=== PATIENT | female | born 1975 | race African-American/Black ===

== ENCOUNTER 2019-03-14 01:21 | Inpatient (IN) | payer OTHER ==
[~2019-03-14] VITALS: Ht 165.1 cm; Wt 103.1 kg
[2019-03-14] VITALS (11 sets, daily range): BP systolic 126–158; BP diastolic 72–85
[~2019-03-14 01:21] MED LIST: CEFDINIR PO; HYDROCODONE-AP1 EAC1 PO; SKELAXIN800 M1 PO; Z FLUOXETINE HCL PO; Z.0.ATIVAN1 MG PO; Z.0.DICYCLOMINE HCL1 PO; Z.0.OMEPRAZOLE20 MG PO; Z.0.PHENERGAN25 M1 PO; [UNRECOGNIZED DRUG - CODE] PO; [UNRECOGNIZED DRUG - OTHER] PO
--- NOTE | 2019-03-14 02:00 | NUR ---
Received patient from [facility], patient is a retired registered nurse, here for abdominal pain. patient is alert and oriented x3. patient is on room air. patient welcomed and offered a bed, assessment done. Dr. Fischer consulted, no call back. Dr. Cerna was also called and made aware of the arrival of patient, patient os currently stable will continue to monitor. Patient condition throughout the night was stable
[2019-03-14] MEDS ORDERED: ACETAMINOP325 MG/10 PO (03:32)
[2019-03-14] MEDS ORDERED: SEROQUEL100 MG PO (03:32)
[2019-03-14] MEDS ORDERED: CYMBALTA60 MG PO (03:32)
[2019-03-14] MEDS ORDERED: BUPROPION HCL100 MG PO (03:32)
[2019-03-14] MEDS ORDERED: ZOFRAN4 MG PO (03:32)
[2019-03-14] MEDS ORDERED: LIDOCAINE HCL50 ML TOP (03:32)
[2019-03-14] MEDS ORDERED: PHENTERMINE HCL15 MG PO (03:32)
[2019-03-14] MEDS ORDERED: OMEPRAZOLE40 MG PO (03:32)
[2019-03-14] MEDS ORDERED: IBUPROFEN400 MG PO (03:32)
[2019-03-14] MEDS ORDERED: ROBAXIN-750750 MG PO (03:32)
[2019-03-14] MEDS ORDERED: OXYCODONE-ACET1 EAC1 PO (03:32)
[2019-03-14] MEDS ORDERED: VICTOZA 2-0.6 MG/0.1 (03:32)
[2019-03-14] MEDS ORDERED: TIZANIDINE HCL4 MG PO (03:32)
[2019-03-14] MEDS ORDERED: LYRICA75 MG PO (03:32)
[2019-03-14] MEDS: MORPHINE SULFATE INJ 4 MG/ML INJ 1ML IV PRN ×3 (03:52→09:13)
[2019-03-14] MEDS: CEFTRIAXONE SOD 1 GM/NS 50 ML 100 ML IV SCH (03:52)
[2019-03-14] MEDS: SODIUM CHLORIDE 0.9% 1000ML 1,000 ML IV SCH ×3 (03:52→21:05)
[2019-03-14] MEDS: ONDANSETRON HCL INJ 2MG/ML 2ML 2 MG/ML VIAL IV PRN ×4 (03:53→21:03)
[2019-03-14] MEDS: METRONIDAZOLE 500MG/NS 100ML 100 ML IV SCH ×4 (04:00→21:04)
[2019-03-14 04:37] LABS: BASOPHILS % 0.6 % (0.0-1.0); EOSINOPHILS # (AUTO) 0.1 (0.0-0.4); EOSINOPHILS % 1.6 % (0.0-6.0); HEMOGLOBIN 8.3 g/dL (12.0-16.0); LYMPHOCYTES # (AUTO) 3.2 (1.0-3.2); LYMPHOCYTES % 49.6 % (18.0-39.1); MEAN CORPUSCULAR HEMOGLOBIN 25.9 pg (28-32); MEAN CORPUSCULAR HGB CONC 29.6 g/dL (31-35); MEAN CORPUSCULAR VOLUME 87.2 fL (81-99); MONOCYTES # (AUTO) 0.4 (0.2-0.8); MONOCYTES % 6.6 % (4.4-11.3); NEUTROPHILS # (AUTO) 2.6 (2.1-6.9); NEUTROPHILS % 41.4 % (38.7-80.0); PLATELET COUNT 337 x10e3/uL (140-360); RED BLOOD COUNT 3.21 x10e6/uL (3.6-5.1); RED CELL DISTRIBUTION WIDTH 16.3 % (11.7-14.4)
[2019-03-14 05:00] LABS: ANION GAP 7.5 mmol/L (8-16); BLOOD UREA NITROGEN 9 mg/dL (7-26); BUN/CREATININE RATIO 10 (6-25); CALCIUM 8.4 mg/dL (8.4-10.2); CARBON DIOXIDE 21 mmol/L (22-29); CHLORIDE 116 mmol/L (98-107); CREATININE, SERUM 0.86 mg/dL (0.57-1.11); EST GLOMERULAR FILTRATION RATE > 60 ML/MIN (60-); GLUCOSE 92 mg/dL (74-118); POTASSIUM 3.5 mmol/L (3.5-5.1); SODIUM 141 mmol/L (136-145)
--- NOTE | 2019-03-14 07:19 | NUR ---
Patient condition throughout the night was stable, patient endorsed to next shift for continuity of care.
[2019-03-14] MEDS ORDERED: PANTOPRAZOLE 40 MG 10ML VIAL IV SCH (09:00)
[2019-03-14] MEDS ORDERED: PROTONIX 200MG/SODIUM CHLORIDE 0.9% 250 ML BAG IV SCH (09:45)
[2019-03-14] MEDS ORDERED: PANTOPRAZOLE 40 MG 10ML VIAL IV NR (10:00)
[2019-03-14] MEDS: PANTOPRAZOL 40MG/SOD CHL 0.9% 50 ML IV SCH ×4 (11:12→23:42)
[2019-03-14] MEDS: HYDROMORPHONE 2MG/ML 2 MG/ML ML IV PRN ×2 (11:12→23:47)
[2019-03-14] MEDS ORDERED: METAXALONE 800 MG TAB PO PRN (11:45)
[2019-03-14 12:14] LABS: THYROID STIMULATING HORMONE 3.138 uIU/mL (0.350-4.940)
[2019-03-14 12:37] LABS: FOLATE 17.9 ng/mL (7.0-15.4)
[2019-03-14] MEDS: IRON SUCROSE 100 MG in SODIUM CHLORIDE 0.9% 100 ML 100 ML IV SCH (12:49)
[2019-03-14] MEDS: DIPHENHYDRAMINE HCL INJ 50 MG/ML VIAL IV PRN ×2 (14:26→21:02)
[2019-03-14] MEDS: QUETIAPINE FUMARATE 25 MG TAB PO SCH ×2 (15:00→20:52)
--- NOTE | 2019-03-14 15:25 | NUR ---
Nutrition Screen Note RD Recommendation for Physician: Initiate PO diet when medically feasible Plan of Care: RD following, monitoring for tolerance and adequacy Nutrition reason for involvement: Nutrition Risk Trigger - MST Primary Diagnose(s): intractable abdominal pain PMH: Maya -en- Y, Ht:64 in Wt:210lb BMI:36.1 kg/m2 IBW:125lb RD Assessment: (03/14/2019) Chart reviewed. Labs and meds reviewed. Initial encounter with patient. Pt states that she is 64" tall and 210 pounds. Pt denies any nausea, is constipated and has abdominal pain. Pt denies any difficulty chewing or swallowing. Pt has Maya - en- Y surgery in 2007. Fair appetite [employer]. No wt changes. Current Diet: NPO Malnutrition Evaluation (03/14/2019) The patient does not meet criteria for a specified degree of malnutrition at this time. Will re-evaluate at follow-up as appropriate. Diet Education Needs Assessment: Nutrition Care Level: Low Signed: Regan Price RD, LD, [facility]
[2019-03-14] MEDS ORDERED: LORAZEPAM 1 MG TAB PO SCH (17:00)
[2019-03-14] MEDS ORDERED: PROPOFOL IV EMULSION 10 MG/ML 50 ML VIAL ONE (18:29)
[2019-03-14] MEDS ORDERED: METOCLOPRAMIDE HCL 10 MG/2ML VIAL ONE (18:29)
[2019-03-14] MEDS ORDERED: LIDOCAINE HCL 2% LOCAL INJ 5 ML SDV VIAL INJ ONE (18:29)
--- NOTE | 2019-03-14 18:37 | History and Physical ---
CHIEF COMPLAINT: Abdominal pain, melena, and acute blood loss anemia. HISTORY OF PRESENT ILLNESS: The patient is a pleasant 43-year-old female, came from outside emergency room in [place], [place]. She came in because of abdominal pain for the past 4-5 days. The patient noted she also has stool that is dark melena. CT scan at an outside [facility] showed moderate enteritis. The patient does have history of gastric bypass back in 2007. Since then, the patient had multiple GI workup and monitoring. The patient is otherwise stable now. She is anemic. Hemoglobin and hematocrit of 8.3 and 28. The patient is pending for further GI workup. Consultation with Dr. Rodney Fischer obtained. PAST MEDICAL HISTORY: Gastric bypass surgery in 2007, anxiety, depression, chronic musculoskeletal pain, chronic low back pain with previous lumbar spine fusion L4-L5 back in 2018, and gastritis. SOCIAL HISTORY: The patient does not smoke or use alcohol. No recreational drugs. ALLERGIES: NO KNOWN ALLERGIES. HOME MEDICATIONS: List is reviewed. REVIEW OF SYSTEMS: Abdominal pain and melena. PHYSICAL EXAMINATION: VITAL SIGNS: Temperature is 98, blood pressure 126/72, pulse rate 76, and respiration 18. GENERAL: The patient is not in acute distress. She is awake. HEENT: Normocephalic and atraumatic. Anicteric. NECK: Supple grossly. PULMONARY: Clear. CARDIOVASCULAR: Regular rate and rhythm. ABDOMEN: Obese. Positive bowel sounds. Non-distention. EXTREMITIES: No cyanosis or edema. NEUROLOGIC: No gross focal deficit. LABORATORY DATA: Sodium is 141, potassium 3.5, chloride 116, bicarb 21, BUN 9, creatinine 0.8, and glucose 92. WBC 6.3, hemoglobin 8.3, hematocrit 28, and platelets is 337. IMPRESSION: 1. Abdominal pain. CT scan show an acute enteritis. 2. Melena with anemia, most likely acute blood loss anemia. 3. History of gastric bypass in 2007 and lumbar spine surgery in 2018. 4. Multiple chronic baseline problems. PLAN: Iron infusion. GI workup including EGD. We will obtain B12 and folic acid level. We will continue to treat this patient. The patient is inpatient. We will start her on Flagyl 5 mg IV q.8, Rocephin 1 g q.24 hours, and Protonix 40 mg IV daily. The patient remained on nothing by mouth for now until further evaluation after endoscopy. MD AUDREY Rene/BUNNY /[id number]
[2019-03-14] MEDS ORDERED: KETAMINE HCL INJ 50 MG/ML 10 ML VIAL ONE (18:38)
[2019-03-14] MEDS ORDERED: FENTANYL CITRATE/PF 100MCG/2 ML INJ ONE (18:38)
--- NOTE | 2019-03-14 19:56 | NUR ---
Left a message for Dr. Fischer's answering service for orders to give meds with sip of water as the patient is NPO. Pending a call back
--- NOTE | 2019-03-14 20:10 | NUR ---
called Dr. Cerna for Tylenol orders and to see if the patient can have PO medications with sips of water. Orders: give 650mg Tylenol PO PRN Q6hrs; patient may have sips of water with PO medications
--- NOTE | 2019-03-14 20:40 | NUR ---
right ac IV removed per patient request. Patient stats that the IV is hurting her.
[2019-03-14] MEDS: HYDROCODONE/APAP 10MG-325MG TAB PO PRN (20:52)
[2019-03-15] VITALS (7 sets, daily range): BP systolic 115–153; BP diastolic 66–78
--- NOTE | 2019-03-15 00:20 | NUR ---
Dr. Fischer called back from previous call for medications with sips of water. I informed him that Dr. Cerna gave orders he was ok with the orders given by Dr. Cerna
--- NOTE | 2019-03-15 00:44 | Operative Report ---
DATE OF PROCEDURE: 03/14/2019 SURGEON: Rodney Fischer MD PROCEDURE: EGD. INDICATIONS FOR EGD: Abdominal pain, history of melena. MEDICATIONS: The patient was done under MAC, please see anesthesiologist's note. PROCEDURE IN DETAIL: With the patient in left lateral decubitus position, the flexible fiberoptic Olympus gastroscope was introduced into the esophagus under direct visualization without any difficulty. The esophagus appeared to be within normal limits. 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 The scope was then advanced with ease into the stomach traversing a small hiatal hernia. The patient apparently is status post Maya-en-Y. No marginal ulcers were noted. The scope was then advanced to the enteric loop, which was patent. The scope was then withdrawn. The patient tolerated the procedure well. IMPRESSION: 1. Normal esophagus. 2. 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 3. Small hiatal hernia. 4. Status post Maya-en-Y. PLAN: Continue current therapy. Keep patient n.p.o. for now. Rodney Fischer MD [facility]/MODL /[id number] cc: Layton Cerna MD
[2019-03-15] MEDS: CEFTRIAXONE SOD 1 GM/NS 50 ML 100 ML IV SCH (02:19)
[2019-03-15] MEDS: HYDROCODONE/APAP 10MG-325MG TAB PO PRN (02:23)
[2019-03-15] MEDS: PANTOPRAZOL 40MG/SOD CHL 0.9% 50 ML IV SCH ×5 (04:40→21:00)
[2019-03-15] MEDS: ACETAMINOPHEN 325 MG TAB PO PRN (04:46)
[2019-03-15 05:25] LABS: BASOPHILS % 0.4 % (0.0-1.0); EOSINOPHILS # (AUTO) 0.1 (0.0-0.4); EOSINOPHILS % 2.1 % (0.0-6.0); HEMOGLOBIN 8.3 g/dL (12.0-16.0); LYMPHOCYTES % 19.6 % (18.0-39.1); MEAN CORPUSCULAR HEMOGLOBIN 26.2 pg (28-32); MEAN CORPUSCULAR HGB CONC 30.7 g/dL (31-35); MEAN CORPUSCULAR VOLUME 85.2 fL (81-99); MONOCYTES # (AUTO) 0.3 (0.2-0.8); MONOCYTES % 5.6 % (4.4-11.3); NEUTROPHILS # (AUTO) 3.8 (2.1-6.9); NEUTROPHILS % 71.9 % (38.7-80.0); PLATELET COUNT 299 x10e3/uL (140-360); RED BLOOD COUNT 3.17 x10e6/uL (3.6-5.1)
[2019-03-15] MEDS: METRONIDAZOLE 500MG/NS 100ML 100 ML IV SCH ×3 (05:49→21:00)
[2019-03-15] MEDS: ONDANSETRON HCL INJ 2MG/ML 2ML 2 MG/ML VIAL IV PRN ×2 (05:49→20:07)
[2019-03-15 05:57] LABS: ANION GAP 10.2 mmol/L (8-16); BLOOD UREA NITROGEN 7 mg/dL (7-26); BUN/CREATININE RATIO 10 (6-25); CALCIUM 8.5 mg/dL (8.4-10.2); CARBON DIOXIDE 22 mmol/L (22-29); CHLORIDE 109 mmol/L (98-107); CREATININE, SERUM 0.72 mg/dL (0.57-1.11); EST GLOMERULAR FILTRATION RATE > 60 ML/MIN (60-); GLUCOSE 84 mg/dL (74-118); POTASSIUM 3.2 mmol/L (3.5-5.1); SODIUM 138 mmol/L (136-145)
[2019-03-15 06:02] LABS: FERRITIN 26.09 ng/mL (4.63-204.00)
[2019-03-15 06:27] LABS: FOLATE 18.3 ng/mL (7.0-15.4)
[2019-03-15] MEDS ORDERED: BUPROPION HCL 100 MG TAB PO SCH (09:00)
[2019-03-15] MEDS ORDERED: PREGABALIN 75 MG CAP PO SCH ×2 (09:00→12:30)
[2019-03-15] MEDS: SODIUM CHLORIDE 0.9% 1000ML 1,000 ML IV SCH ×2 (11:15→18:45)
[2019-03-15 11:22] LABS: BILIRUBIN,URINE NEGATIVE (NEGATIVE); CLARITY,URINE SL CLOUDY (CLEAR); COLOR,URINE YELLOW (YELLOW); KETONES,URINE 1+ (NEGATIVE); LEUKOCYTE ESTERASE ,URINE SMALL (NEGATIVE); NITRITE,URINE NEGATIVE (NEGATIVE); PROTEIN,URINE DIPSTICK NEGATIVE (NEGATIVE); URINE UROBILINOGEN 1 mg/dL (0.2 - 1)
[2019-03-15 11:29] LABS: BACTERIA,URINE FEW /HPF; EPITHELIAL CELLS,URINE MODERATE /LPF; RBC,URINE 0-5 /HPF (0-5)
[2019-03-15] MEDS ORDERED: ZOFRAN4 MG SL (11:42)
[2019-03-15] MEDS ORDERED: OXYCODONE-ACET1 EAC1 PO (11:42)
[2019-03-15] MEDS ORDERED: SAXENDA SQ (11:42)
[2019-03-15] MEDS ORDERED: LIDOPATCH1 EACH TP (11:42)
[2019-03-15] MEDS ORDERED: AIMOVIG SQ (11:42)
[2019-03-15] MEDS ORDERED: Tylenol Arthritis PO (11:42)
[2019-03-15] MEDS ORDERED: GAS-X125 MG PO (11:42)
[2019-03-15] MEDS ORDERED: DICYCLOMINE HCL 10 MG CAP PO PRN (12:00)
[2019-03-15] MEDS ORDERED: LORAZEPAM 1 MG TAB PO PRN (12:15)
[2019-03-15] MEDS ORDERED: SIMETHICONE 80 MG CHEW PO PRN (12:15)
[2019-03-15] MEDS: LIDOCAINE 5% PATCH TP SCH (12:24)
[2019-03-15] MEDS: TIZANIDINE HCL 4 MG TAB PO SCH ×3 (12:24→21:00)
[2019-03-15] MEDS: IRON SUCROSE 100 MG in SODIUM CHLORIDE 0.9% 100 ML 100 ML IV SCH (12:24)
[2019-03-15] MEDS: OXYCODONE/ACETAMINOPHEN 5-325 1 EACH TABLET PO PRN ×2 (12:25→20:06)
[2019-03-15] MEDS: PREGABALIN 50 MG CAP PO SCH ×3 (12:52→20:59)
[2019-03-15] MEDS: DULOXETINE HCL 30 MG DELAYED RELEASE PO SCH (14:01)
[2019-03-15] MEDS: BUPROPION HCL 150 MG TABCR PO SCH (14:01)
[2019-03-15] MEDS ORDERED: GADOBENATE DIMEGLUMINE 1 ML IV ONE (14:03)
[2019-03-15] MEDS: METHOCARBAMOL 750 MG TAB PO SCH ×2 (15:27→20:59)
--- NOTE | 2019-03-15 19:30 | NUR ---
patient called the call light stating that hr IV was hurting. Upon inspection the IV was puffy and red in the left forearm. Patient is noted to have 2 20 gauge IV in the forearm due to IV fluids and a protonix drip. The reddened Iv was removed with catheter intact. New IV 22gauge was stared in the right forearm.
--- NOTE | 2019-03-15 20:47 | NUR ---
patient complained to the tech that she was having pain with her left forearm IV. upon inspection the IV site was red and slightly swollen. Removed the 20IV with catheter intact. Replaced with a 22g IV to the right forearm.
[2019-03-15] MEDS: QUETIAPINE FUMARATE 100 MG TAB PO SCH (21:00)
--- NOTE | 2019-03-15 22:49 | NUR ---
Dr. Fischer called to see how the patient was feeling on clear liquid diet. Patient states she tolerated her diet she feels fine to be advanced to full liquids.
[2019-03-16] VITALS (8 sets, daily range): BP systolic 102–127; BP diastolic 54–73
[2019-03-16] MEDS ORDERED: CYANOCOBALAMIN INJ 1,000 MCG/ML VIAL IM ONE (00:30)
[2019-03-16] MEDS: HYDROMORPHONE 2MG/ML 2 MG/ML ML IV PRN (01:40)
[2019-03-16] MEDS: PANTOPRAZOL 40MG/SOD CHL 0.9% 50 ML IV SCH ×6 (02:00→23:15)
[2019-03-16] MEDS: CEFTRIAXONE SOD 1 GM/NS 50 ML 100 ML IV SCH (02:08)
[2019-03-16] MEDS: SODIUM CHLORIDE 0.9% 1000ML 1,000 ML IV SCH ×2 (04:45→13:32)
[2019-03-16 05:05] LABS: BASOPHILS % 0.3 % (0.0-1.0); EOSINOPHILS # (AUTO) 0.1 (0.0-0.4); EOSINOPHILS % 2.1 % (0.0-6.0); HEMATOCRIT 25.8 % (34.2-44.1); HEMOGLOBIN 7.9 g/dL (12.0-16.0); LYMPHOCYTES # (AUTO) 2.4 (1.0-3.2); LYMPHOCYTES % 40.8 % (18.0-39.1); MEAN CORPUSCULAR HEMOGLOBIN 26.1 pg (28-32); MEAN CORPUSCULAR HGB CONC 30.6 g/dL (31-35); MEAN CORPUSCULAR VOLUME 85.1 fL (81-99); MONOCYTES # (AUTO) 0.6 (0.2-0.8); MONOCYTES % 10.3 % (4.4-11.3); NEUTROPHILS # (AUTO) 2.7 (2.1-6.9); NEUTROPHILS % 45.8 % (38.7-80.0); PLATELET COUNT 319 x10e3/uL (140-360); RED BLOOD COUNT 3.03 x10e6/uL (3.6-5.1)
[2019-03-16] MEDS: METRONIDAZOLE 500MG/NS 100ML 100 ML IV SCH ×3 (05:08→22:07)
[2019-03-16] MEDS: ONDANSETRON HCL INJ 2MG/ML 2ML 2 MG/ML VIAL IV PRN ×3 (05:08→21:07)
[2019-03-16 05:27] LABS: AMYLASE 33 U/L (25-125); LIPASE 13 U/L (8-78)
[2019-03-16 06:07] LABS: ANION GAP 10.9 mmol/L (8-16); BLOOD UREA NITROGEN 5 mg/dL (7-26); BUN/CREATININE RATIO 7 (6-25); CALCIUM 8.3 mg/dL (8.4-10.2); CARBON DIOXIDE 22 mmol/L (22-29); CHLORIDE 109 mmol/L (98-107); CREATININE, SERUM 0.73 mg/dL (0.57-1.11); EST GLOMERULAR FILTRATION RATE > 60 ML/MIN (60-); GLUCOSE 77 mg/dL (74-118); SODIUM 139 mmol/L (136-145)
[2019-03-16 06:17] LABS: POTASSIUM 2.9 mmol/L (3.5-5.1)
--- NOTE | 2019-03-16 06:20 | NUR ---
lab called with a critical potassium 2.9. Called Dr. Cerna left a detailed message per his recording. pending return call for further recommendations
[2019-03-16] MEDS ORDERED: POTASSIUM CHLORIDE 20 MEQ TAB CR PO SCH ×2 (08:15→11:30)
[2019-03-16] MEDS ORDERED: DULOXETINE HCL 30 MG DELAYED RELEASE PO SCH (09:00)
[2019-03-16] MEDS ORDERED: PHENTERMINE HCL 37.5 MG PO SCH (09:00)
[2019-03-16] MEDS: CYANOCOBALAMIN INJ 1,000 MCG/ML VIAL IM SCH (09:03)
[2019-03-16] MEDS: LIDOCAINE 5% PATCH TP SCH (09:03)
[2019-03-16] MEDS: DULOXETINE HCL 30 MG DELAYED RELEASE PO SCH (09:03)
[2019-03-16] MEDS: TIZANIDINE HCL 4 MG TAB PO SCH ×4 (09:03→21:05)
[2019-03-16] MEDS: PREGABALIN 50 MG CAP PO SCH ×3 (09:03→21:04)
[2019-03-16] MEDS: BUPROPION HCL 150 MG TABCR PO SCH (09:03)
[2019-03-16] MEDS: METHOCARBAMOL 750 MG TAB PO SCH ×3 (09:03→21:05)
[2019-03-16] MEDS: OXYCODONE/ACETAMINOPHEN 5-325 1 EACH TABLET PO PRN ×3 (09:05→21:08)
[2019-03-16] MEDS: ACETAMINOPHEN 325 MG TAB PO PRN (13:00)
--- NOTE | 2019-03-16 14:59 | Diagnostic Imaging Report ---
MRI abdomen CPT code: 87775 Indication: Nausea, diffuse abdominal pain ^PERSISTENT PAIN ^[id number] ^[id number] Technique: Axial T1 nonfat sat in and out of phase, axial T2 fat sat, coronal T2 nonfat sat, axial DWI and ADC MR images of the abdomen were obtained before and after the administration of 19 cc of gadolinium. Axial T1 fat sat GRE dynamic images in precontrast, arterial, venous and delayed phases were obtained. Comparison: None Findings: Images are motion degraded. Liver: Normal T1 and T2 signal. No evidence of mass. Gallbladder: Present and is distended. No intraluminal calculi mural thickening, or pericholecystic inflammation Biliary tree: No intrahepatic biliary ductal dilatation. The common bile duct measures 6 mm in diameter and tapers as it approaches the ampulla. No intraluminal filling defect. Pancreas: Normal T1 signal. Normal enhancement of the parenchyma. No mass or ductal dilatation. Spleen: Normal in attenuation and size without mass Adrenal glands: No evidence for mass. Kidneys: No hydronephrosis. There is a lobulated cyst in the left kidney measuring 6 mm. No enhancing masses in either kidney. Lymph nodes: No enlarged abdominal or retroperitoneal lymph nodes. Bowel: Stomach and visualized portions of the small bowel and large bowel are normal in diameter with normal wall thickness. Vasculature: Patent and normal in morphology. Peritoneum/retroperitoneum: No free fluid or fluid collection. Pelvis: Visualized pelvic organs are unremarkable. Lung bases: Clear. Bones: Postoperative changes of the lower lumbar spine from fusion. No focal osseous lesions. IMPRESSION: 1. Hydropic gallbladder. Recommend evaluation of gallbladder function with HIDA scan in nuclear medicine. No biliary ductal dilatation. 2. Other findings as described above. Signed by: Dr. Brett Jain MD on 03/16/2019 2:56 PM
[2019-03-16] MEDS ORDERED: POTASSIUM CHLORIDE 20 MEQ TAB CR PO ONE ×2 (15:00→17:15)
--- NOTE | 2019-03-16 17:08 | NUR ---
20meq potassium wasted due to patient dropping tablet on floor.
--- NOTE | 2019-03-16 17:42 | NUR ---
spoke to in regards to new consult, MD states will be in to see patient in "the morning."
[2019-03-16] MEDS: QUETIAPINE FUMARATE 100 MG TAB PO SCH (21:05)
[2019-03-17] VITALS (7 sets, daily range): BP systolic 113–143; BP diastolic 58–84
[2019-03-17] MEDS: SODIUM CHLORIDE 0.9% 1000ML 1,000 ML IV SCH ×2 (00:45→02:17)
[2019-03-17] MEDS: CEFTRIAXONE SOD 1 GM/NS 50 ML 100 ML IV SCH (02:29)
[2019-03-17] MEDS: ONDANSETRON HCL INJ 2MG/ML 2ML 2 MG/ML VIAL IV PRN ×4 (04:30→19:30)
[2019-03-17] MEDS: HYDROMORPHONE 2MG/ML 2 MG/ML ML IV PRN ×4 (04:30→19:29)
[2019-03-17 04:56] LABS: BASOPHILS % 0.5 % (0.0-1.0); EOSINOPHILS # (AUTO) 0.2 (0.0-0.4); EOSINOPHILS % 3.1 % (0.0-6.0); HEMATOCRIT 28.3 % (34.2-44.1); HEMOGLOBIN 8.5 g/dL (12.0-16.0); LYMPHOCYTES # (AUTO) 2.3 (1.0-3.2); LYMPHOCYTES % 37.7 % (18.0-39.1); MEAN CORPUSCULAR HEMOGLOBIN 26.2 pg (28-32); MEAN CORPUSCULAR VOLUME 87.1 fL (81-99); MONOCYTES # (AUTO) 0.7 (0.2-0.8); MONOCYTES % 11.6 % (4.4-11.3); NEUTROPHILS # (AUTO) 2.8 (2.1-6.9); NEUTROPHILS % 46.4 % (38.7-80.0); PLATELET COUNT 324 x10e3/uL (140-360); RED BLOOD COUNT 3.25 x10e6/uL (3.6-5.1); RED CELL DISTRIBUTION WIDTH 16.2 % (11.7-14.4)
[2019-03-17 05:18] LABS: ANION GAP 8.4 mmol/L (8-16); BLOOD UREA NITROGEN 5 mg/dL (7-26); BUN/CREATININE RATIO 6 (6-25); CALCIUM 8.6 mg/dL (8.4-10.2); CARBON DIOXIDE 24 mmol/L (22-29); CHLORIDE 111 mmol/L (98-107); CREATININE, SERUM 0.78 mg/dL (0.57-1.11); EST GLOMERULAR FILTRATION RATE > 60 ML/MIN (60-); GLUCOSE 81 mg/dL (74-118); POTASSIUM 3.4 mmol/L (3.5-5.1); SODIUM 140 mmol/L (136-145)
--- NOTE | 2019-03-17 05:24 | NUR ---
patient IV in the right and left forearm 22g were burning and hurting the patient. There was a small swollen spot about the insertion site. The catheters were both removed intact. Two 22g IV's were started in the left forearm. The patient requires 2 IV's as she is on a protonix drip and IV fluids with intermittent IV antibiotic as ordered.
[2019-03-17] MEDS: METRONIDAZOLE 500MG/NS 100ML 100 ML IV SCH ×3 (05:37→21:17)
[2019-03-17 05:46] LABS: PHOSPHORUS 2.2 MG/DL (2.3-4.7)
--- NOTE | 2019-03-17 07:08 | NUR ---
Walking rounds done and report received. Patient is awake and alertx3 in NAD. POC discussed. Awaiting Dr. Nunez for further orders. Patient instructed to call for assistance as needed and verbalized understanding. Call austin within reach.
--- NOTE | 2019-03-17 07:19 | NUR ---
patient is alert and oriented, IV's intact. report given to tomasa KAHN
[2019-03-17] MEDS: METHOCARBAMOL 750 MG TAB PO SCH ×3 (09:07→21:17)
[2019-03-17] MEDS: OXYCODONE/ACETAMINOPHEN 5-325 1 EACH TABLET PO PRN ×2 (09:07→17:39)
[2019-03-17] MEDS: PREGABALIN 50 MG CAP PO SCH ×3 (09:07→21:17)
[2019-03-17] MEDS: BUPROPION HCL 150 MG TABCR PO SCH (09:07)
[2019-03-17] MEDS: DULOXETINE HCL 30 MG DELAYED RELEASE PO SCH (09:07)
[2019-03-17] MEDS: CYANOCOBALAMIN INJ 1,000 MCG/ML VIAL IM SCH (09:07)
[2019-03-17] MEDS: LIDOCAINE 5% PATCH TP SCH (09:07)
[2019-03-17] MEDS: TIZANIDINE HCL 4 MG TAB PO SCH ×4 (09:07→21:17)
[2019-03-17] MEDS: PANTOPRAZOL 40MG/SOD CHL 0.9% 50 ML IV SCH (10:26)
[2019-03-17] MEDS ORDERED: POTASSIUM CHLORIDE 10MEQ EA PO SCH (11:00)
[2019-03-17] MEDS ORDERED: POTASSIUM PHOSPHATE 20 MM in SODIUM CHLORIDE 0.9% 250ML 250 ML IV ONE (11:15)
--- NOTE | 2019-03-17 11:51 | NUR ---
CM SPOKE TO FEMI JOSUE REGARDING PATIENT PLAN OF CARE: PATIENT TO HAVE HIDA SCAN; DR. DAVILA TO ROUND ASSESS PATIENT AND HIDA SCAN RESULTS FOR POSSIBLE SURGERY TO REMOVE GALLBLADDER.
--- NOTE | 2019-03-17 13:10 | Consultation ---
DATE OF CONSULTATION: 03/17/2019 HISTORY OF PRESENT ILLNESS: The patient is a 43-year-old female admitted through the emergency room with complaints of gastrointestinal bleeding as well as epigastric abdominal pain. The patient says she has had pain for about one week now. She had upper GI endoscopy, which revealed Tracey-Martin tears and she is no longer bleeding. Pain has persisted, however. She does not have any back pain. She does have some associated nausea. Evaluation of the MRI revealed a distended gallbladder suggestive of hydrops of the gallbladder. PAST MEDICAL HISTORY: Significant for previous gastric bypass surgery in 2008, previous lumbar spine fusion in 2018. She has a history of fibromyalgia and chronic pain. MEDICATIONS: Listed in the chart. ALLERGIES: SHE HAS NO KNOWN ALLERGIES. FAMILY HISTORY: Noncontributory. SOCIAL HISTORY: The patient does not smoke cigarettes or drink alcohol. REVIEW OF SYSTEMS: As stated above, otherwise was negative. PHYSICAL EXAMINATION: GENERAL: The patient is awake and alert. VITAL SIGNS: Normal. HEENT: Sclera is nonicteric. NECK: Supple with no masses. LUNGS: Equal breath sounds are clear bilaterally. CARDIAC: Regular rate and rhythm with no murmur. ABDOMEN: Soft. There is mild epigastric tenderness. There is no mass. There were no signs of peritonitis. EXTREMITIES: Have no edema. NEUROLOGIC: Grossly intact. LAB TESTS: White blood cell count is normal, hemoglobin 8.5, hematocrit 28.3. Chemistries essentially normal. CT scan of the abdomen and pelvis done at the outside facility revealed some thickening of the bowel suggestive of enteritis. MRI revealed distended gallbladder. ASSESSMENT: A 43-year-old female with epigastric abdominal pain and distended gallbladder seen on MRI. Plan to evaluate further with a HIDA scan with ejection fraction. It is very likely her pain may be due to cholecystitis. There are no signs of peritonitis, however, no findings that would warrant immediate surgical intervention. Thank you for asking me to see Ms. Akers. MD DEQUAN Lyn/BUNNY /[id number]
--- NOTE | 2019-03-17 15:30 | NUR ---
Patient is off unit for Hida scan
--- NOTE | 2019-03-17 17:26 | NUR ---
Patient returned from Hida scan
--- NOTE | 2019-03-17 18:43 | Diagnostic Imaging Report ---
Hepatobiliary Scan with Gallbladder Ejection Fraction Clinical information: Abdominal pain x 1.5 weeks Report: Following intravenous administration of 6.8 millicuries of Tc-99m mebrofenin, dynamic images of the abdomen in the anterior projection were obtained through 30 minutes. Sincalide (CCK analog) 2.0 micrograms was administered intravenously over 30 minutes with additional imaging for determination of gallbladder ejection fraction. Perfusion to the liver is normal. Extraction of tracer from the blood pool by the liver parenchyma is normal. Tracer is seen promptly within the biliary tract. The gallbladder begins to fill by 8 minutes post-injection of tracer and fills adequately. Tracer is seen in the small bowel by 18 minutes. The gallbladder ejection fraction with administration of sincalide is 98% (normal greater than 40%). Impression: 1. Filling of the gallbladder excludes the diagnosis of acute cystic duct obstruction/acute cholecystitis. 2. Normal gallbladder ejection fraction of 98% does not support the clinical diagnosis of chronic cholecystitis/gallbladder dyskinesia. Signed by: Dr. Sis Cassidy M.D. on 03/17/2019 6:40 PM
--- NOTE | 2019-03-17 20:06 | NUR ---
Dr. Nunez was called and stated no npo or planned surgery.
[2019-03-17] MEDS: QUETIAPINE FUMARATE 100 MG TAB PO SCH (21:17)
[2019-03-18] VITALS: BP 122/73
[2019-03-18] MEDS: CEFTRIAXONE SOD 1 GM/NS 50 ML 100 ML IV SCH (03:53)
[2019-03-18 04:00] VITALS: BP_SYST 137; BP_SYST 142; BP_DIAS 64; BP_DIAS 79
[2019-03-18] MEDS: HYDROMORPHONE 2MG/ML 2 MG/ML ML IV PRN ×4 (04:23→17:40)
[2019-03-18] MEDS: ONDANSETRON HCL INJ 2MG/ML 2ML 2 MG/ML VIAL IV PRN ×2 (04:23→09:57)
[2019-03-18 05:07] LABS: BASOPHILS # (AUTO) 0.1 (0.0-0.1); BASOPHILS % 0.7 % (0.0-1.0); EOSINOPHILS # (AUTO) 0.3 (0.0-0.4); EOSINOPHILS % 3.8 % (0.0-6.0); HEMATOCRIT 31.1 % (34.2-44.1); LYMPHOCYTES # (AUTO) 3.1 (1.0-3.2); LYMPHOCYTES % 44.7 % (18.0-39.1); MEAN CORPUSCULAR HEMOGLOBIN 25.6 pg (28-32); MEAN CORPUSCULAR HGB CONC 28.9 g/dL (31-35); MEAN CORPUSCULAR VOLUME 88.6 fL (81-99); MONOCYTES # (AUTO) 0.5 (0.2-0.8); MONOCYTES % 7.5 % (4.4-11.3); NEUTROPHILS % 42.9 % (38.7-80.0); PLATELET COUNT 332 x10e3/uL (140-360); RED BLOOD COUNT 3.51 x10e6/uL (3.6-5.1); RED CELL DISTRIBUTION WIDTH 17.1 % (11.7-14.4)
[2019-03-18 05:27] LABS: ANION GAP 9.8 mmol/L (8-16); BLOOD UREA NITROGEN 5 mg/dL (7-26); BUN/CREATININE RATIO 6 (6-25); CARBON DIOXIDE 25 mmol/L (22-29); CHLORIDE 106 mmol/L (98-107); CREATININE, SERUM 0.78 mg/dL (0.57-1.11); EST GLOMERULAR FILTRATION RATE > 60 ML/MIN (60-); GLUCOSE 96 mg/dL (74-118); POTASSIUM 3.8 mmol/L (3.5-5.1); SODIUM 137 mmol/L (136-145)
[2019-03-18] MEDS: METRONIDAZOLE 500MG/NS 100ML 100 ML IV SCH ×2 (05:36→13:29)
[2019-03-18] MEDS: DIPHENHYDRAMINE HCL INJ 50 MG/ML VIAL IV PRN ×2 (06:17→18:44)
--- NOTE | 2019-03-18 06:45 | NUR ---
Patient endorsed to next shift for continuity of care
--- NOTE | 2019-03-18 07:00 | NUR ---
received am report from rn. pt is awake in bed, no s/s of distress. call light within reach, bed in lowest position, side rails up.
[2019-03-18] MEDS ORDERED: PANTOPRAZOLE SOD 40 MG TABEC PO SCH (07:30)
[2019-03-18 07:55] VITALS: BP 170/84
[2019-03-18] MEDS: DULOXETINE HCL 30 MG DELAYED RELEASE PO SCH (08:53)
[2019-03-18] MEDS: PREGABALIN 50 MG CAP PO SCH ×2 (08:53→15:02)
[2019-03-18] MEDS: METHOCARBAMOL 750 MG TAB PO SCH ×2 (08:54→15:02)
[2019-03-18] MEDS: BUPROPION HCL 150 MG TABCR PO SCH (08:54)
[2019-03-18] MEDS: TIZANIDINE HCL 4 MG TAB PO SCH ×3 (08:54→17:20)
[2019-03-18 08:55] VITALS: BP 170/84
[2019-03-18] MEDS: IRON-VITAMIN-MINERAL CAPSULE PO SCH ×2 (08:55→17:19)
[2019-03-18] MEDS: CYANOCOBALAMIN INJ 1,000 MCG/ML VIAL IM SCH (08:56)
[2019-03-18] MEDS: LIDOCAINE 5% PATCH TP SCH (10:01)
[2019-03-18 11:52] VITALS: BP 117/56
[2019-03-18] MEDS: ONDANSETRON HCL 4 MG ORAL DISINTEGRATING TAB PO PRN ×2 (13:29→17:40)
[2019-03-18] MEDS: OXYCODONE/ACETAMINOPHEN 5-325 1 EACH TABLET PO PRN (15:05)
[2019-03-18 15:41] VITALS: BP 125/67
--- NOTE | 2019-03-19 07:25 | Discharge Summary ---
FINAL DISCHARGE DIAGNOSES: 1. Intractable nausea, vomiting, and abdominal pain, status post EGD that showed Tracey-Martin tears. 2. Anemia with history of melena. 3. Chronic back pain. 4. Hydrops gallbladder with normal HIDA scan. CONSULTANTS: General Surgery and GI. PHYSICAL EXAMINATION: VITAL SIGNS: Temperature 97.4, pulse 69, respiratory rate is 18, blood pressure 125/67, and pulse ox 98% on room air. LABORATORY DATA: Lab findings show white count is 6.9, hemoglobin 9, hematocrit 31, platelets of 332. Chemistry; sodium 137, potassium 3.8, chloride 106, bicarb 25, anion gap of 9.8, BUN 5, creatinine is 0.78, calcium is 9, magnesium 2, and phosphorus none. Iron saturation was . TSH is 3.1. Urinalysis was found to be negative. MICROBIOLOGY: None. IMAGING STUDIES: MRI of the abdomen showed hydrops gallbladder, recommend evaluation with a HIDA scan. No biliary ductal dilatation. HIDA scan performed on 03/17/2019, shows finding of filling of the gallbladder, excludes the diagnosis of acute cystic duct obstruction of acute cholecystitis. Normal gallbladder ejection fraction 98% does not support the clinical diagnosis of a chronic cholecystitis or gallbladder dyskinesia. HOSPITAL COURSE: This is a 43-year-old female with chronic back pain, comes into the ED with complaints of abdominal pain. Imaging study, CT was consistent with acute enteritis. She also has a history of melena with underlying anemia with a history of acute blood loss anemia. GI was consulted. The patient underwent EGD that shows evidence of a Tracey-Martin tear, but no evidence of active bleeding. No further workup was needed. The patient was on Protonix and IV antibiotics. MRI of the abdomen was concerning for hydrops gallbladder, but HIDA scan shows an EF of 98% with no issues. General Surgery was consulted. The patient's HIDA scan was found to be normal and no further workup was needed by General Surgery and was cleared for discharge home. Both GI and General Surgery cleared the patient for discharge home. The patient will be discharged on oral antibiotics to complete her course as well as Zofran. On discharge, the patient was doing well, back to normal baseline, tolerating diet well with no complaints. On the day of discharge, vital signs stable, labs reviewed and stable. The patient was seen, evaluated, examined thoroughly on the day of discharge. No other complaints. The patient verbalized understanding and agreed to plan of care. Follow up accordingly as an outpatient with primary care physician in 1 week and GI in 2 weeks' time in terms of pathology results. MEDICATIONS: See med reconciliation form. DISPOSITION: Home. CONDITION: Stable. DIET: Heart healthy. In the event of any worsening symptoms, the patient was advised to come back to the ED for further evaluation. Discharge summary took greater than 35 minutes. MD VALERIE Oshea/MODPushpa /[id number]
== END 2019-03-18 19:40 | disposition home or self-care (01) | DRG 369 ==
LOC: MED/SURG2 02:09
PROVIDERS: ADMIT Internal Medicine; ATTEND Internal Medicine
PROC: 0DJ08ZZ Inspection of Upper Intestinal Tract, Via Natural or Artificial Opening Endoscopic (ICD-10-PCS; principal; 2019-03-14 18:05)
DX: K22.6 Gastro-esophageal laceration-hemorrhage syndrome (principal); K82.1 Hydrops of gallbladder; D62 Acute posthemorrhagic anemia; D50.0 Iron deficiency anemia secondary to blood loss (chronic); G89.29 Other chronic pain; M54.9 Dorsalgia, unspecified; K52.9 Noninfective gastroenteritis and colitis, unspecified; Z98.84 Bariatric surgery status; F41.9 Anxiety disorder, unspecified; F32.9 Major depressive disorder, single episode, unspecified; K44.9 Diaphragmatic hernia without obstruction or gangrene; G47.33 Obstructive sleep apnea (adult) (pediatric); K81.1 Chronic cholecystitis; K82.8 Other specified diseases of gallbladder
CPT/HCPCS: 36415; 43235; 74183; 78227; 80048; 81001; 82150; 82607; 82728; 82746; 83540; 83690; 83735; 84100; 84443; 84466; 85025; 85045; 96360; A9537; J0696; J1200; J1756; J2001; J2270; J2405; J2765; J3420; J7030; J7050